=== PATIENT | female | born 1980 | race African-American/Black ===

== ENCOUNTER 2021-06-25 19:20 | Emergency (ER) | payer OTHER ==
[~2021-06-25] VITALS: Ht 167.6 cm; Wt 97.1 kg
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
[2021-06-25 21:54] VITALS: BP 109/76
== END 2021-06-25 21:56 | disposition home or self-care (01) ==
LOC: ER 19:20
DX: T40.2X1A Poisoning by other opioids, accidental (unintentional), initial encounter (principal); I10 Essential (primary) hypertension; F17.210 Nicotine dependence, cigarettes, uncomplicated; Z88.0 Allergy status to penicillin; Y92.89 Other specified places as the place of occurrence of the external cause